=== PATIENT | female | born 1980 | race American Indian/Alaskan Native ===

== ENCOUNTER 2018-01-19 08:28 | Emergency (ER) | payer MEDICAID ==
[2018-01-19 08:33] VITALS: O2SAT 99
[2018-01-19 08:34] VITALS: BMI 29.9
--- NOTE | 2018-01-19 09:29 | ED PDOC ---
Lower Extremity Pain/Injury Time Seen by Provider: 01/19/18 09:07 Chief Complaint (Nursing): Lower Extremity Problem/Injury Chief Complaint (Provider): Right Foot Pain History Per: Patient History/Exam Limitations: no limitations Onset/Duration Of Symptoms: Days Current Symptoms Are (Timing): Still Present Additional Complaint(s): 37 year old female presents to the ED for an evaluation of right medial foot pain. Patient states she was walking and she stepped on uneven pavement and twisted her foot. She is able to ambulate short distances without any assistance. She also took Advil for relief. Denies fever, cough, shortness of breath, nausea or vomiting. PMD: Dr. Ayala Past Medical History Reviewed: Historical Data, Nursing Documentation, Vital Signs Vital Signs: Last Vital Signs Temp 99.0 F 01/19/18 08:41 Pulse 78 01/19/18 08:41 Resp 18 01/19/18 08:41 BP 161/83 H 01/19/18 08:41 Pulse Ox 99 01/19/18 08:41 - Medical History PMH: Anemia - Surgical History Surgical History: Cholecystectomy - Family History Family History: States: Unknown Family Hx - Social History Current smoker - smoking cessation education provided: Yes (Light Smoker < 10 Cigarettes Daily) Alcohol: Social Drugs: Cannabis - Home Medications Home Medications: Ambulatory Orders Medication Instructions Recorded Albuterol HFA [Ventolin HFA 90 2 puff IH [id number] PRN #1 bottle 05/14/15 mcg/actuation (8 g)] Azithromycin [Zithromax Z-Segun] 250 mg PO DAILY #4 tab 05/14/15 Ferrous Sulfate [Feosol] 324 mg PO BID #30 ect 05/14/15 Sulfamethoxazole/Trimethoprim 1 tab PO BID #14 tab 11/18/15 [Bactrim DS 800 mg-160 mg] Famotidine [Pepcid] 20 mg PO Q12 #20 tab 07/09/16 Naproxen [Naprosyn] 500 mg PO BID PRN #15 tablet 01/19/18 - Allergies Allergies/Adverse Reactions: Allergies Allergy/AdvReac Type Severity Reaction Status Date / Time No Known Allergies Allergy Verified 05/28/14 14:46 Review of Systems Review Of Systems: ROS cannot be obtained secondary to pt's inabilty to answer questions. Constitutional: Negative for: Fever Cardiovascular: Negative for: Chest Pain Respiratory: Negative for: Shortness of Breath Gastrointestinal: Negative for: Nausea, Vomiting Musculoskeletal: Positive for: Foot Pain (right) Physical Exam - Reviewed Nursing Documentation Reviewed: Yes Vital Signs Reviewed: Yes - Physical Exam Appears: Positive for: Non-toxic, No Acute Distress Head Exam: Positive for: ATRAUMATIC, NORMAL INSPECTION, NORMOCEPHALIC Skin: Positive for: Normal Color, Warm, Dry Eye Exam: Positive for: Normal appearance Pulses-Dorsalis Pedis (L): 2+ Pulses-Dorsalis Pedis (R): 2+ Extremity: Positive for: Tenderness (right medial foot ). Negative for: Pedal Edema, Calf Tenderness, Deformity, Other (malleolus tenderness, erythema) Neurologic/Psych: Positive for: Alert, Oriented (x3) - ECG O2 Sat by Pulse Oximetry: 99 (RA) Pulse Ox Interpretation: Normal Medical Decision Making Medical Decision Making: Time: 918 Initial Impression: right medial foot pain Initial Plan: --ED Urine --Motrin 600mg --Ankle Right 3 Views [RAD] --Foot Right 3 Views [RAD] --Reevaluation Time: 949 PROCEDURE: Right Ankle Radiographs. HISTORY: Twisting injury COMPARISON: None FINDINGS: BONES: Bone alignment and mineralization are normal. There is no acute displaced fracture or bone destruction. JOINTS: Normal. Ankle mortise maintained. Talar dome intact SOFT TISSUES: Normal. OTHER FINDINGS: None. IMPRESSION: No acute fracture or dislocation. Time: 949 PROCEDURE: Right Foot Radiographs. HISTORY: Medial pain, twisting injury COMPARISON: None. FINDINGS: BONES: Bone alignment and mineralization are normal. There is no acute displaced fracture or bone destruction. JOINTS: The joint spaces are preserved. There is mild hallux valgus. SOFT TISSUES: Normal. OTHER FINDINGS: None. IMPRESSION: No acute fracture or dislocation. Crispin bandage placed. Scribe Attestation: Documented by Mauli Maniar, acting as a scribe for Mary Garrison MD Provider Scribe Attestation: All medical record entries made by the Scribe were at my direction and personally dictated by me. I have reviewed the chart and agree that the record accurately reflects my personal performance of the history, physical exam, medical decision making, and the department course for this patient. I have also personally directed, reviewed, and agree with the discharge instructions and disposition. Disposition - Clinical Impression Clinical Impression: Foot sprain - Disposition Referrals: Podiatry Clinic [Outside] Disposition: Routine/Home Disposition Time: 10:30 Condition: STABLE Prescriptions: Naproxen [Naprosyn] 500 mg PO BID PRN #15 tablet PRN Reason: Pain, Moderate (4-7) Instructions: Foot Sprain (DC) Forms: [facility] (E[place]ian), [facility] ED School/Work Excuse
--- NOTE | 2018-01-19 09:52 | RAD ---
Date of service: 01/19/2018 PROCEDURE: Right Ankle Radiographs. HISTORY: Twisting injury COMPARISON: None FINDINGS: BONES: Bone alignment and mineralization are normal. There is no acute displaced fracture or bone destruction. JOINTS: Normal. Ankle mortise maintained. Talar dome intact SOFT TISSUES: Normal. OTHER FINDINGS: None. IMPRESSION: No acute fracture or dislocation.
--- NOTE | 2018-01-19 09:52 | RAD ---
Date of service: 01/19/2018 PROCEDURE: Right Foot Radiographs. HISTORY: Medial pain, twisting injury COMPARISON: None. FINDINGS: BONES: Bone alignment and mineralization are normal. There is no acute displaced fracture or bone destruction. JOINTS: The joint spaces are preserved. There is mild hallux valgus. SOFT TISSUES: Normal. OTHER FINDINGS: None. IMPRESSION: No acute fracture or dislocation.
[2018-01-19 10:52] VITALS: BP 153/89; PULSE 64; RESP 16; TEMP 98.5
== END 2018-01-19 10:40 | disposition home or self-care (01) ==
LOC: H.ER 08:28
DX: S99.911A Unspecified injury of right ankle, initial encounter (principal); F17.210 Nicotine dependence, cigarettes, uncomplicated; X50.1XXD Overexertion from prolonged static or awkward postures, subsequent encounter